=== PATIENT | male | born 1955 | race Caucasian/White ===

== ENCOUNTER 2023-01-16 11:06 | Emergency (ER) | payer MEDICARE, MEDICAID, SELFPAY ==
[2023-01-16 11:21] VITALS: PULSE 88; RESP 20; TEMP 36.8; O2SAT 97
--- NOTE | 2023-01-16 11:49 | ED.URI ---
HPI - URI/Sore Throat General Chief Complaint: Upper Respiratory Infection Stated Complaint: Right Ear Irritation/Sore Throat Time Seen by Provider: 01/16/23 11:49 Source: patient, RN notes reviewed and old records reviewed Mode of arrival: ambulatory Limitations: no limitations History of Present Illness HPI Narrative: 67-year-old male presents to the [facility] with complaints of right ear discomfort and a sore throat for about 4 days. States that he can not lay back, or lay on a bed, gets short of breath. Denies any chest pain. Patient is a very poor historian, does not know home medications. Unsure if he has any cardiac issue in the past. Patient is a diabetic Bilateral lower extremity swelling noted Patient's blood pressure low. States that he has having dizziness. Walking patient to room 1 patient stood up, became pale, dizzy and unsteady. Escorted patient with 2 person assist to room 1. Performed EKG. EMS called. Onset (ago): day(s) (4) Related Data Home Medications Medication Instructions Recorded Confirmed Jardiance 01/16/23 allopurinol 01/16/23 aspirin 01/16/23 cholecalciferol (vitamin D3) 01/16/23 cyanocobalamin (vitamin B-12) 01/16/23 furosemide 01/16/23 gabapentin 01/16/23 lisinopril 01/16/23 metformin 01/16/23 omeprazole 01/16/23 Allergies Allergy/AdvReac Type Severity Reaction Status Date / Time metformin Allergy Unknown Unknown Verified 01/16/23 11:17 polyethylene glycol Allergy Unknown Unknown Verified 01/16/23 11:17 polyethylene glycol 3350 Allergy Unknown Unknown Verified 01/16/23 11:17 potassium chloride Allergy Unknown Unknown Verified 01/16/23 11:17 pravastatin Allergy Unknown Unknown Verified 01/16/23 11:17 sodium Allergy Unknown Unknown Verified 01/16/23 11:17 sodium bicarbonate Allergy Unknown Unknown Verified 01/16/23 11:17 sodium chloride Allergy Unknown Unknown Verified 01/16/23 11:17 sodium sulfate Allergy Unknown Unknown Verified 01/16/23 11:17 perflexane Allergy Unknown Unknown Uncoded 01/16/23 11:17 Review of Systems Review of Systems: All systems reviewed & are unremarkable except as noted in HPI and below Constitutional: Constitutional: Reports no additional constitutional complaints Eyes: Eyes: Reports no additional eye complaints ENT: Reports system reviewed and no additional complaints, except as documented, Reports otalgia and Reports sore throat Cardiovascular: Cardiovascular: Reports as per HPI, Denies chest pain, Reports leg edema and Reports dyspnea Respiratory: Respiratory: Reports as per HPI, Denies chest congestion, Denies cough and Reports dyspnea Gastrointestinal: Gastrointestinal: Reports as per HPI, Denies abdominal pain, Reports nausea and Denies vomiting Musculoskeletal: Musculoskeletal: Reports no additional musculoskeletal complaints Integumentary/Breasts: Skin/Breast: Reports system reviewed and no additional complaints, except as docu Neurologic: Reports system reviewed and no additional complaints, except as documented Psychiatric: Psychiatric: Reports no additional psychiatric complaints Allergic/Immunologic: Allergic/Immunologic: Reports no additional allergic/immunologic complaints PMFSH Past Medical History Medical History Diabetes Social History Social History Gender identity (if verbalized by the patient): Male Comments At the time of my signature, I reviewed and agree with the nursing past medical, surgical, social, and family history. There is no relevant family history pertinent to the patient complaint. Exam Const: General: cooperative, no acute distress, well developed, alert, ill appearing chronically, uncomfortable and well nourished Nutritional Appearance: well nourished and obese Orientation/consciousness: patient oriented x3 Limitations: no limitations HENMT: Head: normal to inspection Ea
[2023-01-16 12:06] VITALS: BP 87/58
[2023-01-16 12:06] LABS: Glucose Point of Care 147 mg/dl (65-105)
--- NOTE | 2023-01-16 12:14 | ECG_ITS ---
Measurements Intervals [place] Rate: 87 P: 13 ID: [id number] QRS: -3 QRSD: 81 T: 77 QT: 349 QTc: 420 Interpretive Statements SINUS RHYTHM NONSPECIFIC T-WAVE ABNORMALITY- HIGH LATERAL LEADS BASELINE ARTIFACT- V1-V3 BORDERLINE ECG NO PREVIOUS ECG AVAILABLE FOR COMPARISON Electronically Signed On 01-16-2023 12:58:38 CDT by Leonardo Myers D.O.
--- NOTE | 2023-01-16 12:41 | PC.NURSE ---
1121- unable to get BP d/t patient movement. [employer] SAL[employer] DIRECT[employer] notified. will let patient calm down and get BP
== END 2023-01-16 12:12 | disposition short-term general hospital (02) ==
LOC: EXPCOLL 11:13
PROVIDERS: Emergency Provider Nurse Practitioner
DX: J02.9 Acute pharyngitis, unspecified (principal); I95.9 Hypotension, unspecified; R60.0 Localized edema; R42 Dizziness and giddiness; E11.9 Type 2 diabetes mellitus without complications
CPT/HCPCS: 82948; 87081; 87880; 93005; 99215; A9270; G0463